=== PATIENT | female | born 1960 | race Caucasian/White ===

== ENCOUNTER → 2018-03-07 | Day surgery (SDC) | payer OTHER ==
[~2018-03-07] MED LIST: CLONAZEPAM0.5 MG PO; COZAAR25 MG PO; METFORMIN HCL500 MG PO; OMEGA 3 1,0001 EACH PO; PAXIL PO; PERCOCET 5-3251 EACH PO; RECTICARE30 GM TOP
== END | disposition home or self-care (01) ==
LOC: EDBD 03-02 11:15 → ADM 03-02 11:15 → CIR.AMB 05:56
DX: K64.8 Other hemorrhoids (principal)